=== PATIENT | female | born 1960 | race Caucasian/White ===

== ENCOUNTER 2025-09-25 13:20 | Emergency (ER) | payer SELFPAY ==
[2025-09-25 13:55] VITALS: TEMP 97.2
[2025-09-25 14:20] LABS: BASOPHIL % 0.5 % (0.1-1.2); Basophil (Absolute #) 0.06 x10^3/uL (0.01-0.08); Eosinophil (Absolute #) 0.08 x10^3/uL (0.04-0.36); Hematocrit 48.5 % (34.1-44.9); Hemoglobin 15.9 g/dL (11.2-15.7); IMMATURE GRAN # 0.13 x10^3u/L (0.001-0.031); IMMATURE GRAN % 1.1 % (0.001-0.429); Lymphocyte (Absolute #) 1.17 x10^3/uL (1.18-3.74); Mean Corpuscular Hemoglobin 32.7 pg (25.6-32.2); Mean Corpuscular Hgb Concent. 32.8 g/dL (32.2-35.5); Monocyte (Absolute #) 1.72 x10^3/uL (0.24-0.86); NUCLEATED RBC # 0.00 x10^3u/L (0.00-0.012); NUCLEATED RBC % 0.0 % (0.00-0.2); Platelet Count 410 x10^3/uL (182-369); Red Blood Count 4.86 x10^6/uL (3.93-5.22); White Blood Count 12.0 x10^3/uL (3.98-10.04)
[2025-09-25] MEDS ORDERED: Zofran 4 MG/2 ML VIAL ONE (14:21)
[2025-09-25] MEDS: Zofran 4 MG/2 ML VIAL IV ONE (14:28)
[2025-09-25 14:34] LABS: Calcium 10.0 mg/dL (8.4-10.2); Carbon Dioxide 30.0 mmol/L (22-30); Creatinine 1 1.15 mg/dL (0.52-1.04); EST GLOMERULAR FILTRATION RATE 53.5 ML/MIN; Glucose 102.0 mg/dL (74-106); Potassium 3.6 mmol/L (3.5-5.1); SGOT/AST 32.0 U/L (14-36); SGPT/ALT 19.0 U/L (0-35); Total Protein 7.2 g/dL (6.3-8.2)
--- NOTE | 2025-09-25 14:43 | ERPHSYRPT ---
- History of Present Illness Patient Subjective Stated Complaint: patient states she feels as if she has the flu, patient has been vomiting x 3 days, experiencing general discomfort, and has headache. 2 episodes of vomiting today. patient also states she had a left sided mastectomy with lymph node removal to left arm in 2013 and has intermittent episodes of swelling to left arm and is concerned Triage Nursing Assessment: patient presents to ed via private vehicle, patient able to ambulate into ed, alert and orineted x 4, skin p/w/d, lungs clear throughout all don, bowel sounds active x 4 quadrants, abdomen soft/tender upon palpation in all areas, no swelling noted to BLE, denies sob/chest pain Physician History: Nausea vomiting, patient of nausea vomiting over last 24 hours, With generalized abdominal pain, she also had some left arm swelling over the last 6 weeks which she believes is secondary to lymphedema as she had a axillary node dissection with breast cancer treatment, Last bowel movement was today, She also stated having cough, nonproductive, He denies any nasal congestion, show sore throat Allergies/Adverse Reactions: No Known Drug Allergies Allergy (Unverified 09/25/25 13:44) Hx Tetanus, Diphtheria Vaccination/Date Given: Yes Hx Influenza Vaccination/Date Given: No Hx Pneumococcal Vaccination/Date Given: No Travel Risk - International Travel Have you traveled outside of the country in past 3 weeks: No - Emerging Infectious Disease Are you exhibiting symptoms associated with any current EIDs: Yes Symptoms: Headaches/Body Aches/, Vomitting - Past Medical History Pertinent Past Medical History: Yes Cardiac History: High Cholesterol Musculoskeletal History: Arthritis Female Reproductive Disorders: Breast Cancer - Past Surgical History Past Surgical History: Yes Other Surgical History: left sided mastectomy 2018. 2 stents in back of heart and stent to groin due to blood clots - Social History Smoking Status: Current every day smoker Exposure to second hand smoke: Yes Drug Use: marijuana - Social Determinants of Health Will the patient participate in the screening: Yes Do you worry about a steady place to live?: No Do you have any problems with any of the following?: No known problems In the past 12 months,have you had to go without utilities?: No Transportation Issues: No Has anyone in your support network made you feel unsafe?: No Have you or anyone in your house had to go w/o enough food: No - Nursing Vital Signs Nursing Vital Signs: Initial Vital Signs Temperature 97.2 F 11/02/25 13:21 Pulse Rate 100 H 09/25/25 13:21 Respiratory Rate 20 09/25/25 13:21 Blood Pressure 100/62 09/25/25 13:21 O2 Sat by Pulse Oximetry 98 09/25/25 13:21 Pain Scale Pain Intensity 2 - Physical Exam SpO2: 98 Ordered Tests: Active Orders 24 hr Category Date Time Status IV Insertion STAT Care 09/25/25 14:07 Active ABDOMEN AND PELVIS W CONTRAST [CT] Stat Exams 09/25/25 14:07 Completed CHEST 1 VIEW (PORTABLE) Stat Exams 09/25/25 14:07 Taken CBC W DIFF Stat Lab 09/25/25 14:15 Completed CMP Stat Lab 09/25/25 14:15 Completed LIPASE Stat Lab 09/25/25 14:15 Completed Lactic Acid Stat Lab 09/25/25 14:07 Completed Medication Summary Discontinued Medications Generic Name Dose Route Start Last Admin Trade Name Freq PRN Reason Stop Dose Admin Ondansetron HCl 4 mg 09/25/25 14:07 09/25/25 14:28 Ondansetron Hcl 4 Mg/2 Ml Vial IV 09/25/25 14:08 4 mg STAT ONE Administration Ondansetron HCl Confirm 09/25/25 14:21 Ondansetron Hcl 4 Mg/2 Ml Vial Administered 09/25/25 14:22 Dose 4 mg .ROUTE .[facility] Lab/Rad Data: Laboratory Result Diagrams 09/25/25 14:15 09/25/25 14:15 Laboratory Results 09/25/25 09/25/25 09/25/25 Range/Units 14:15 14:15 14:07 WBC 12.0 H (3.98-10.04) x10^3/uL RBC 4.86 (3.93-5.22) x10^6/uL Hgb 15.9 H (11.2-15.7) g/dL Hct 48.5 H (34.1-44.9) % MCV 99.8 H (79.4-94.8) fL MCH 32.7 H (25.6-32.2) pg MCHC 32.8 (32.2-35.5) g/dL RDW 15.4 H (11.7-14.4) % Plt Count 410 H (182-369) x10^3/uL MPV 9.5 (9.4-12.3) fL Gran % 73.5 H (34.0-71.1) % Immature Gran % (Auto) 1.1 H (0.001-0.429) % Nucleat RBC Rel Count 0.0 (0.00-0.2) % Eos # (Auto) 0.08 (0.04-0.36) x10^3/uL Immature Gran # (Auto) 0.13 H (0.001-0.031) x10^3u/L Absolute Lymphs (auto) 1.17 L (1.18-3.74) x10^3/uL Absolute Monos (auto) 1.72 H (0.24-0.86) x10^3/uL Absolute Nucleated RBC 0.00 (0.00-0.012) x10^3u/L Lymphocytes % 9.8 L (19.3-51.7) % Monocytes % 14.4 H (4.7-12.5) % Eosinophils % 0.7 (0.7-5.8) % Basophils % 0.5 (0.1-1.2) % Absolute Granulocytes 8.82 H (1.56-6.13) x10^3/uL Basophils # 0.06 (0.01-0.08) x10^3/uL Sodium 132 L (135-145) mmol/L Potassium 3.6 (3.5-5.1) mmol/L Chloride 96 L (98-107) mmol/L Carbon Dioxide 30 (22-30) mmol/L Anion Gap 9.6 (5-15) MEQ/L BUN 39 H (7-17) mg/dL Creatinine 1.15 H (0.52-1.04) mg/dL Estimated GFR 53.5 ML/MIN Glucose 102 (74-106) mg/dL Lactic Acid 3.8 H (0.4-2.0) Calcium 10.0 (8.4-10.2) mg/dL Total Bilirubin 0.50 (0.2-1.3) mg/dL AST 32 (14-36) U/L ALT 19 (0-35) U/L Alkaline Phosphatase 104 (38-126) U/L Serum Total Protein 7.2 (6.3-8.2) g/dL Albumin 4.1 (3.5-5.0) g/dL Lipase 95 (23-300) U/L Slides for Path Review YES - Progress Progress Note: 09/25/25 16:00 Discussed lab work, awaiting CT results 1715pm>> CT results available and went to discussed with the patient but she has eloped - Departure Departure Disposition: Eloped Clinical Impression: Nausea and vomiting in adult patient Condition: Stable Critical Care Time: No Referrals: ADAN CARVER DO [Primary Care Provider, EMERGENCY MEDICINE] - Follow up/PCP as directed
[2025-09-25 14:57] LABS: Slide Review 1 YES
--- NOTE | 2025-09-25 16:17 | XRAY ---
CLINICAL HISTORY: abd pain COMPARISON: None. TECHNIQUE: CT of the abdomen and pelvis was performed with and without contrast, using the following protocol: axial images with reconstructed coronal and sagittal images. 80cc Isovue 370 intravenous contrast was administered. One of the following dose reduction techniques was utilized for this exam: automated exposure control, adjustment of the mA and/or kV according to patient size, and the use of iterative reconstruction. FINDINGS: Abdomen: Liver: The liver is normal in size, shape, and density. No focal lesions, cysts, or masses are identified. The hepatic vasculature and biliary ducts are unremarkable. Gallbladder and Biliary System: The fundal area shows focal wall thickening with enhancement and tiny calcific dense foci, concerning for possible fundal-type adenomyomatosis rather than a mass lesion (for further ultrasound/MRI evaluation). The gallbladder is normal in size and shape. No pericholecystic fluid or dense gallstones are identified. The common bile duct is normal in caliber, without dilation. Pancreas: The pancreatic head, body, and tail are visualized and appear normal in size and density. No pancreatic masses or cysts are noted. Few calcific foci are observed in the pancreatic head. The pancreatic duct is not dilated. Spleen: The spleen is normal in size, shape, and density. No splenic lesions or masses are identified. Appendix: No CT evidence of acute appendicitis. Kidneys and Adrenal Glands: Both kidneys are normal in size, shape, and position. Cortical thickness is within normal limits. No renal calculi or hydronephrosis. The adrenal glands are unremarkable, with no evidence of masses or hyperplasia. Pelvis: Urinary Bladder: The urinary bladder is normal in contour and wall thickness. No intraluminal lesions are identified. Multiple pelvic phleboliths are noted. Uterus: The uterus is normal in size and contour for age. No gross masses or abnormal thickening are identified. Ovaries: The ovaries are not well visualized, but no gross abnormalities are noted. Vagina: The vagina is normal in contour and wall thickness. Cervix: No evidence of mass or abnormal thickening. Peritoneal and Retroperitoneal Structures: [id number] and mesenteric arterial atheromatous calcifications are noted, with still good enhancing mesenteric vessels. No free fluid or abnormal fluid collections are identified within the abdomen or pelvis. No lymphadenopathy is noted. Bowel: The visualized bowel loops are normal in caliber and appearance. No evidence of bowel obstruction or wall thickening. Bones and Soft Tissues: A diffuse osteoporotic nature of the osseous structures is noted. Reduced heights of the T11 and L1 vertebral bodies are likely osteoporotic in nature, with no retropulsion. Pelvic bones and soft tissues are unremarkable. No fractures or abnormal masses are identified. Lung bases: Right lung basal atelectatic bands are noted. IMPRESSION: 1. The gallbladder fundal area shows focal wall thickening with enhancement and foci of calcifications, concerning for possible fundal-type adenomyomatosis rather than a mass lesion (for further ultrasound/MRI evaluation). 2. [id number] and mesenteric arterial atheromatous calcifications are noted, with still good enhancing mesenteric vessels. 3. A diffuse osteoporotic nature of the osseous structures is noted. 4. Reduced heights of the T11 and L1 vertebral bodies, likely osteoporotic in nature, with no retropulsion. Electronically Signed by: Dieter Mg MD. (09/25/2025 16:16:26 EST)
[2025-09-25 16:33] VITALS: BP 99/68; PULSE 99; RESP 19
[2025-09-25 17:20] VITALS: O2SAT 98
--- NOTE | 2025-09-25 18:57 | XRAY ---
Indication: Cough. Comparison: None Portable chest hyperinflated and clear. Heart not enlarged. Bony thorax intact with osteopenia, minimal levoscoliosis centered at T6 and old right rib fractures. Incidental left mastectomy with left axillary elaine dissection. Impression: Nonacute hyperinflated chest with chronic features.
== END 2025-09-25 17:00 | disposition left against medical advice (07) ==
LOC: ED 13:20
DX: R11.2 Nausea with vomiting, unspecified (principal); R10.84 Generalized abdominal pain; R05.1 Acute cough; Z72.0 Tobacco use